=== PATIENT | male | born 1995 | race American Indian/Alaskan Native ===

== ENCOUNTER 2017-02-26 13:22 | Emergency (ER) | payer OTHER ==
[2017-02-26 13:30] VITALS: BP 175/70
--- NOTE | 2017-02-26 14:29 | Emergency Department Report ---
Chief Complaint: Urogenital-Male Stated Complaint: PROBLEM WITH ERECTION Time Seen by Provider: 02/26/17 14:05 - HPI History of Present Illness: vss nad waiting in no life threat - Exam Vital Signs: Vital Signs 02/26/17 13:28 Temperature 98.7 F Pulse Rate 73 Respiratory 20 Rate Blood Pressure 175/70 O2 Sat by Pulse 99 Oximetry MSE screening note: Focused history and physical exam performed. Due to findings the following was ordered: ED Disposition for MSE Condition: Stable
--- NOTE | 2017-02-26 15:32 | Emergency Department Report ---
Chief Complaint: Urogenital-Male Stated Complaint: PROBLEM WITH ERECTION Time Seen by Provider: 02/26/17 14:05 - HPI History of Present Illness: 21-year-old -[place] male comes in today for complaint of not able to get an erection. Patient reports he has not been able to sustain an erection since he was [age] years old. Patient reports headache is partially hardening goes limp again. Patient denies any pain denies any penile discharge no fever no chills no dysuria he currently is on no medication and has no past medical history. - Exam Vital Signs: Vital Signs 02/26/17 13:28 Temperature 98.7 F Pulse Rate 73 Respiratory 20 Rate Blood Pressure 175/70 O2 Sat by Pulse 99 Oximetry Physical Exam: Patient's alert and oriented 3. Cardiovascular S1 and S2 regular rate and rhythm Respiratory clear to auscultation bilateral Abdomen soft nontender nondistended no CVA tenderness bilateral Psych stable mood MSE screening note: Focused history and physical exam performed. Due to findings the following was ordered: Patient's been evaluated by this provider MSE. I discussed with patient that this issue needs to be evaluated by a primary care provider. I discussed with patient that he is able to follow up with [facility]. This provider will provide information for referral. Patient verbalized understanding ED Disposition for MSE Clinical Impression: Erectile dysfunction Qualifiers: Erectile dysfunction type: unspecified Qualified Code(s): N52.9 - Male erectile dysfunction, unspecified Disposition: DC-01 TO HOME OR SELFCARE Is pt being admited?: No Does the pt Need Aspirin: No Condition: Stable Additional Instructions: It's important for you to follow up with [facility] for further evaluation of this chronic issue. Referrals: PRIMARY CARE [Primary Care Provider] - 3-5 Days [facility] [Provider Group] - 3-5 Days
== END 2017-02-26 15:45 | disposition home or self-care (01) ==
LOC: ED 13:22
DX: N52.9 Male erectile dysfunction, unspecified (principal)
CPT/HCPCS: 99281

== ENCOUNTER 2018-07-09 14:12 | Emergency (ER) | payer OTHER ==
[2018-07-09 14:50] VITALS: BP 103/81
--- NOTE | 2018-07-09 15:01 | Emergency Department Report ---
Blank Doc - Documentation Documentation: This is a 22-year-old male that presents with abdominal pain. Denies any n/v/d. This initial assessment/diagnostic orders/clinical plan/treatment(s) is/are subject to change based on patient's health status, clinical progression and re- assessment by fellow clinical providers in the ED. Further treatment and workup at subsequent clinical providers discretion. Patient/guardians urged not to elope from the ED as their condition may be serious if not clinically assessed and managed. Initial orders include: 1- Patient sent to [facility] for further evaluation and treatment 2- labs 3- XR abd
[2018-07-09] MEDS ORDERED: BENTYL IM ONE (15:55)
[2018-07-09] MEDS ORDERED: NACL 0.9% 1000 ML 1,000 ML IV ONE ×2 (15:55→16:51)
[2018-07-09] MEDS ORDERED: PEPCID IV ONE (15:55)
--- NOTE | 2018-07-09 16:08 | XRay Report ---
PROCEDURE: XR ABD SERIES W CXR 1V HISTORY: abd pain FINDINGS: Frontal view of the chest was acquired as well as supine and erect views of the abdomen. The heart is normal in size. The lungs appear clear. There are air-fluid levels within central abdominal small bowel loops, which are minimally dilated at 3 cm. Although air is seen within the colon this could represent low-grade partial small bowel obstr uction. Differential diagnosis would include gastroenteritis or ileus. Stool is present throughout the colon, without colonic dilation. The patient appears to be mildly con stipated IMPRESSION: Fluid levels within central abdominal small bowel loops which appear mildly dilated. Diff erential diagnosis would include low-grade partial small bowel obstruction, gastroenteritis or ileus This document is electronically signed by Joaquín Kay MD., Jul 09 2018 04:06:09 PM ET
[2018-07-09 16:15] LABS: Hematocrit 43.8 % (35.5-45.6); Hemoglobin 14.8 gm/dl (11.8-15.2); Mean Corpuscular HGB Conc 34 % (32-34); Mean Corpuscular Volume 83 fl (84-94); Platelet Count 246 K/mm3 (140-440); Red Blood Count 5.26 M/mm3 (3.65-5.03); Red Cell Distribution Width 14.7 % (13.2-15.2)
[2018-07-09 16:16] LABS: Basophils % (Auto) 0.3 % (0.0-1.8); Eosinophils # (Auto) 0.1 K/mm3 (0.0-0.4); Eosinophils % (Auto) 1.8 % (0.0-4.3); Lymphocytes # (Auto) 0.7 K/mm3 (1.2-5.4); Lymphocytes % (Auto) 10.9 % (13.4-35.0); Monocytes # (Auto) 0.6 K/mm3 (0.0-0.8); Monocytes % (Auto) 9.9 % (0.0-7.3)
[2018-07-09 16:22] LABS: Alanine Aminotransferase 20 units/L (7-56); Albumin 4.2 g/dL (3.9-5); BUN/Creatinine Ratio 12; Blood Urea Nitrogen 12 mg/dL (9-20); Calcium 8.7 mg/dL (8.4-10.2); Hemolysis Index 7
[2018-07-09 16:30] LABS: Bilirubin,Direct < 0.2 mg/dL (0-0.2)
--- NOTE | 2018-07-09 16:55 | Emergency Department Report ---
ED General Adult HPI - General Chief complaint: Abdominal Pain Stated complaint: ABD PAIN Time Seen by Provider: 07/09/18 14:54 Source: patient Mode of arrival: Ambulatory Limitations: No Limitations - History of Present Illness Initial comments: Patient is a 22-year-old -[place] male who is here for some upper abdominal discomfort. Last day. Patient is a 6 out of 10 in severity and feels like a twisting sensation. Patient denies nausea vomiting diarrhea fevers or chills. Patient just started a very rigorous workout regimen and buys on a dmission patient was not hydrating well. Patient denies any syncope or near syncope. - Related Data Allergies Allergy/AdvReac Type Severity Reaction Status Date / Time No Known Allergies Allergy Unverified 02/26/17 13:27 ED Review of Systems ROS: Stated complaint: ABD PAIN Other details as noted in HPI Comment: All other systems reviewed and negative ED Past Medical Hx - Past Medical History Previous Medical History?: No - Surgical History Past Surgical History?: No - Social History Smoking Status: Never Smoker Substance Use Type: None ED Physical Exam - General Limitations: No Limitations General appearance: alert, in no apparent distress - Head Head exam: Present: atraumatic, normocephalic - Eye Eye exam: Present: normal appearance - ENT ENT exam: Present: mucous membranes moist - Neck Neck exam: Present: normal inspection - Respiratory Respiratory exam: Present: normal lung sounds bilaterally. Absent: respiratory distress, wheezes, rales - Cardiovascular Cardiovascular Exam: Present: regular rate, normal rhythm, normal heart sounds. Absent: systolic murmur, diastolic murmur, rubs, gallop - GI/Abdominal GI/Abdominal exam: Present: soft, normal bowel sounds. Absent: distended, tenderness, guarding, rebound, rigid - Rectal Rectal exam: Present: deferred - Extremities Exam Extremities exam: Present: normal inspection - Back Exam Back exam: Present: normal inspection - Neurological Exam Neurological exam: Present: alert, oriented X3 - Psychiatric Psychiatric exam: Present: normal affect, normal mood - Skin Skin exam: Present: warm, dry, intact, normal color. Absent: rash ED Course Vital Signs 07/09/18 14:49 Temperature 99 F Pulse Rate 93 H Respiratory 16 Rate Blood Pressure 103/81 [Left] O2 Sat by Pulse 98 Oximetry ED Medical Decision Making - Lab Data Result diagrams: 07/09/18 15:36 07/09/18 15:36 Labs 07/09/18 07/09/18 07/09/18 15:36 15:36 16:02 WBC 6.3 RBC 5.26 H Hgb 14.8 Hct 43.8 MCV 83 L MCH 28 MCHC 34 RDW 14.7 Plt Count 246 Lymph % (Auto) 10.9 L [place] % (Auto) 9.9 H Eos % (Auto) 1.8 Baso % (Auto) 0.3 Lymph # 0.7 L [place] # 0.6 Eos # 0.1 Baso # 0.0 Seg Neutrophils % 77.1 H Seg Neutrophils # 4.8 Sodium 136 L Potassium 4.1 Chloride 99.1 Carbon Dioxide 26 Anion Gap 15 BUN 12 Creatinine 1.0 Estimated GFR > 60 BUN/Creatinine Ratio 12 Glucose 95 Calcium 8.7 Total Bilirubin 0.80 Direct Bilirubin < 0.2 Indirect Bilirubin 0.6 AST 26 ALT 20 Alkaline Phosphatase 55 Total Creatine Kinase 612 H Total Protein 7.6 Albumin 4.2 Albumin/Globulin Ratio 1.2 Lipase 28 - Medical Decision Making The patient's CK is elevated however is not elevated to the point where the patient needs to be admitted to the hospital. Patient some mild rhabdomyolysis. Patient was hydrated and given meds for stomach cramps. Patient discharged home with instructions to hydrate better when performing exercises especially a vigorous exercise regimen. Critical care attestation.: If time is entered above; I have spent that time in minutes in the direct care of this critically ill patient, excluding procedure time. ED Disposition Clinical Impression: Rhabdomyolysis, Dehydration Disposition: -01 TO HOME OR SELFCARE Is pt being admited?: No Does the pt Need Aspirin: No Condition: Stable Instructions: Rhabdomyolysis (ED), Dehydration (ED) Referrals: VENKAT MELGAR MD [Primary Care Provider] - 3-5 Days Time of Disposition: 16:55
[2018-07-09 19:15] LABS: Bilirubin,Urine NEG (Negative); Blood,Urine NEG (Negative); Color,Urine Yellow (Yellow); Mucus,Urine 2+ /HPF; Protein,Urine <15 mg/dL mg/dL (Negative); Urobilinogen,Urine < 2.0 mg/dL (<2.0); WBC,Urine < 1.0 /HPF (0.0-6.0)
== END 2018-07-09 19:29 | disposition home or self-care (01) ==
LOC: ED 14:12
DX: M62.82 Rhabdomyolysis (principal); E86.0 Dehydration
CPT/HCPCS: 36415; 74022; 80048; 80076; 81001; 82550; 83690; 85025; 96361; 96372; 96374; 99284; J0500; J7030